=== PATIENT | male | born 1945 | race Caucasian/White ===

== ENCOUNTER 2024-09-12 08:50 | Emergency (ER) | payer MEDICARE, OTHER ==
[~2024-09-12] VITALS: Ht 182.9 cm; Wt 106.6 kg
[~2024-09-12 08:50] MED LIST: ACEBUTOLOL HCL200 MG PO; AMLODIPINE BESYL5 MG PO; ATORVASTATIN CA10 MG PO; EDARBYCLOR 40-1 EACH; GLIPIZIDE5 MG PO; METFORMIN HCL500 MG PO
[2024-09-12 09:08] VITALS: PULSE 82; RESP 18; TEMP 98.2; O2SAT 99
[2024-09-12] MEDS ORDERED: FLOMAX0.4 MG PO (09:57)
[2024-09-12] MEDS ORDERED: CEFDINIR300 MG PO (09:57)
== END 2024-09-12 10:10 | disposition home or self-care (01) ==
LOC: ER 09:10
DX: R33.9 Retention of urine, unspecified (principal); C61 Malignant neoplasm of prostate; I10 Essential (primary) hypertension; E11.9 Type 2 diabetes mellitus without complications
CPT/HCPCS: 51700; 87086; 99283

== ENCOUNTER 2024-09-18 11:57 | Emergency (ER) | payer MEDICARE ==
[~2024-09-18] VITALS: Ht 182.9 cm; Wt 101.2 kg
[~2024-09-18 11:57] MED LIST changes: +CEFDINIR300 MG PO; +FLOMAX0.4 MG PO
[2024-09-18 13:00] VITALS: PULSE 84; RESP 16; TEMP 98.5; O2SAT 99
== END 2024-09-18 14:30 | disposition home or self-care (01) ==
LOC: ER 13:32
DX: Z46.6 Encounter for fitting and adjustment of urinary device (principal); C61 Malignant neoplasm of prostate; I10 Essential (primary) hypertension; E11.9 Type 2 diabetes mellitus without complications
CPT/HCPCS: 99282